=== PATIENT | male | born 1985 | race American Indian/Alaskan Native ===

== ENCOUNTER 2021-06-13 16:49 | Emergency (ER) | payer SELFPAY ==
[2021-06-13] MEDS ORDERED: SODIUM CHLORIDE 0.9% 500 ML 500 ML IV ONE (17:07)
[2021-06-13] MEDS ORDERED: ASPIRIN 81 MG TAB CHEW PO ONE (17:07)
--- NOTE | 2021-06-13 17:11 | Emergency Department Report ---
ED Chest Pain HPI - General Chief Complaint: Chest Pain Stated Complaint: CHEST PAIN Time Seen by Provider: 06/13/21 17:06 Source: patient Mode of arrival: Ambulatory Limitations: No Limitations - History of Present Illness Initial Comments: Patient presents with a 3-day history of chest pain. He states that 3 days ago he started having some substernal chest pain. It is described as tightness. The pain does not seem to radiate or migrate. He is short of breath associated with this. He has had pain like this before. He states that a year ago he was told that he had numerous blood clots because of COVID. He admits that he was on blood thinners for 4 months. He was told to take them for 6 months. He is not currently anticoagulated. Patient states that there is no recent travel or trauma. He has had no cough. He has had no congestion. He does feel short of breath but that seems to be triggered from the pain itself the patient believes. He has had no pain or swelling in the legs. There is no travel. - Related Data Allergies Allergy/AdvReac Type Severity Reaction Status Date / Time No Known Allergies Allergy Verified 06/13/21 16:57 Heart Score - HEART Score History: Slightly suspicious EKG: Normal Age: < 45 Risk factors: No known risk factors Troponin: < normal limit HEART Score: 0 - EKG Read Time Time EKG Completed: 20:45 (Not known-EKG was not available at the time of this note completion) EKG Read Time: 20:45 ED Review of Systems ROS: Stated complaint: CHEST PAIN Other details as noted in HPI Comment: All other systems reviewed and negative Constitutional: denies: fever Eyes: denies: eye pain ENT: denies: throat pain Respiratory: denies: cough Cardiovascular: as per HPI Endocrine: denies: unexplained weight loss Gastrointestinal: denies: abdominal pain Genitourinary: denies: dysuria Musculoskeletal: denies: back pain Neurological: denies: headache Hematological/Lymphatic: denies: easy bruising ED Past Medical Hx - Past Medical History Hx Pulmonary Embolism: Yes (Secondary to COVID) Additional medical history: COVID infection - Family History Family history: no significant ED Physical Exam - General Limitations: No Limitations, Other (Pulse ox noted and normal) General appearance: alert, in distress (Moderate) - Head Head exam: Present: atraumatic, normocephalic - Eye Eye exam: Present: normal appearance, EOMI. Absent: scleral icterus - ENT ENT exam: Present: normal orophraynx, normal external ear exam - Neck Neck exam: Present: normal inspection. Absent: meningismus - Respiratory Respiratory exam: Present: normal lung sounds bilaterally, respiratory distress (Moderate), accessory muscle use, prolonged expiratory - Cardiovascular Cardiovascular Exam: Present: regular rate, normal rhythm - GI/Abdominal GI/Abdominal exam: Present: soft. Absent: distended, tenderness, pulsatile mass - Extremities Exam Extremities exam: Present: normal capillary refill. Absent: calf tenderness - Back Exam Back exam: Absent: CVA tenderness (R), CVA tenderness (L) - Neurological Exam Neurological exam: Present: alert, oriented X3, CN II-XII intact. Absent: motor sensory deficit - Psychiatric Psychiatric exam: Present: normal affect, normal mood - Skin Skin exam: Present: warm, dry ED Course Vital Signs 06/13/21 06/13/21 16:50 18:39 Temperature 98 F Pulse Rate 76 67 Respiratory 22 14 Rate Blood Pressure 158/99 165/83 [Left] O2 Sat by Pulse 100 100 Oximetry - Reevaluation(s) Reevaluation #1: 06/13/21 17:09 IV, labs, and CT scan was ordered. Blood pressure differential between right and left arm were noted and discussed with the nurse. Old records reviewed. Reevaluation #2: 06/13/21 19:47 Work-up was complete and the patient was discharged HONG score - Hong Score Age > 65: (0) No Aspirin use within the Past 7 Days: (0) No 3 or more CAD Risk Factors: (0) No 2 or more Angina events in past 24 hrs: (0) No Known CAD with more than 50% Stenosis: (0) No Elevated Cardiac Markers: (0) No ST Deviation Greater than 0.5mm: (0) No HONG Score: 0 ED Medical Decision Making - Lab Data Result diagrams: 06/13/21 17:28 06/13/21 17:28 Rhythm strip: Normal sinus rhythm without ectopy per monitor observe 10 seconds. - EKG Data -: EKG Interpreted by Me - Radiology Data Radiology results: report reviewed - Medical Decision Making Patient presents with chest pain of unclear etiology. There is no evidence of PE based on CTA angiogram. Patient did not have a dissection. Etiology for the blood pressure deficit right arm versus left arm is unclear. He certainly could have a subclavian steal type picture. This could also be a problem with measurement. Patient does not have evidence of STEMI or NSTEMI. There is no evidence of trauma. He does not have pneumonia or pneumothorax. Patient was treated symptomatically and referred for outpatient evaluation and follow-up. Critical Care Time: No Critical care attestation.: If time is entered above; I have spent that time in minutes in the direct care of this critically ill patient, excluding procedure time. ED Disposition Clinical Impression: Substernal chest pain Disposition: HOME / SELF CARE / HOMELESS Is pt being admited?: No Condition: Stable Instructions: Nonspecific Chest Pain, Adult, Pain Without a Known Cause Additional Instructions: Drink plenty water. Return for problems. Follow-up with your regular doctor. Take an aspirin every day. If you do not have a regular doctor, follow-up with the referral physician. Follow-up with cardiology as referred as well. Referrals: PRIMARY MD DWIGHT [Primary Care Provider] - 3-5 Days SHELLIE KEARNS MD [Staff Physician] - 3-5 Days ANA GUPTA MD [Staff Physician] - 3-5 Days
[2021-06-13 17:49] LABS: Hematocrit 47.5 % (35.5-45.6); Hemoglobin 15.4 gm/dl (11.8-15.2); Mean Corpuscular HGB Conc 33 % (32-34); Mean Corpuscular Volume 86 fl (84-94); Platelet Count 309 K/mm3 (140-440); Red Blood Count 5.54 M/mm3 (3.65-5.03)
--- NOTE | 2021-06-13 18:36 | Cat Scan Report ---
CTA CHEST WITH CONTRAST INDICATION / CLINICAL INFORMATION: aortic dissection. TECHNIQUE: Axial CT images were obtained through the chest after injection of IV contrast. 3 plane NY P and/or 3D reconstructions were produced. All CT scans at this location are performed using CT dose reduction for ALARA by means of automated exposure control. COMPARISON: None available. FINDINGS: PULMONARY ARTERIES: No pulmonary emboli. THORACIC AORTA: No significant abnormality. HEART: No significant abnormality. CORONARY ARTERY CALCIFICATION: None. MEDIASTINUM / VAMSI: No significant abnormality. PLEURA: No pleural effusion. No pneumothorax. LUNGS: No acute air space or interstitial disease. ADDITIONAL FINDINGS: None. UPPER ABDOMEN: No acute findings. SKELETAL STRUCTURES: No significant osseous abnormality. IMPRESSION: 1. No CT evidence for pulmonary embolism or thoracic aortic dissection. 2. No acute intrathoracic findings. Signer Name: Nathaniel Wilkins MD Signed: 06/13/2021 6:32 PM Workstation Name: [id number]
[2021-06-13 18:40] VITALS: BP 165/83
[2021-06-13 18:52] LABS: BUN/Creatinine Ratio 13; Blood Urea Nitrogen 13 mg/dL (9-20); Calcium 9.4 mg/dL (8.4-10.2); Hemolysis Index 16
== END 2021-06-13 20:15 | disposition home or self-care (01) ==
LOC: ED 16:49
DX: R07.89 Other chest pain (principal)
CPT/HCPCS: 36415; 71275; 80048; 83735; 84484; 85027; 85379; 93005; 99284; J7040; Q9967; 93010